=== PATIENT | female | born 1950 | race Caucasian/White ===

== ENCOUNTER → 2016-11-09 | Outpatient (CLI) | payer OTHER | LOC: FIMAGING 13:40 | PROVIDERS: ATTEND Internal Medicine | DX: Z12.31 Encounter for screening mammogram for malignant neoplasm of breast (principal); Z80.3 Family history of malignant neoplasm of breast | CPT/HCPCS: G0202 ==

== ENCOUNTER 2017-07-12 20:55 | Observation (INO) | payer OTHER ==
[2017-07-12 21:00] VITALS: TEMP 97.5
[2017-07-12] MEDS ORDERED: PANTOPRAZOLE SODIUM 40 MG VIAL IVP ONE (21:36)
--- NOTE | 2017-07-12 21:39 | EDPHY ---
H & P Stated Complaint: "bleeding in upper stomach" Time Seen by Provider: 07/12/17 21:23 HPI/ROS: CHIEF COMPLAINT: "I think I have a bleeding ulcer" HISTORY OF PRESENT ILLNESS: 67-year-old female prior history GI bleed 25 years ago, complaining of black stool since yesterday evening associated lightheadedness, fatigue. No abdominal pain. History of chronic Aleve use secondary to osteoarthritis. No chest pain. REVIEW OF SYSTEMS: A ten point review of systems was performed and is negative with the exception of the items mentioned in the HPI PAST MEDICAL & SURGICAL HISTORY: Osteoarthritis. GI bleed. SOCIAL HISTORY:Nonsmoker. PHYSICAL EXAM (Prior to examination, patient consented to physical exam, hands were washed and my usual and customary physical exam procedures followed) 1) GENERAL: Well-developed, well-nourished, alert and oriented. Appears to be in no acute distress. 2) HEAD: Normocephalic, atraumatic 3) HEENT: Pupils equal, round, reactive to light bilaterally. Sclera anicteric. [Nasopharynx, oropharynx, clear, no lesions . dry mucous membranes. 4) NECK: Full range of motion, no meningeal signs. 5) LUNGS: Clear auscultation bilaterally, no wheezes, no rhonchi, no retractions. 6) HEART: Regular rate and rhythm, no murmur, no heave, no gallop. 7) ABDOMEN: No guarding, no rebound, no focal tenderness, negative McBurney's, negative Bray's, negative Rovsing's, negative peritoneal sign, unable to elicit any abdominal pain 8) MUSCULOSKELETAL: Moving all extremities, no focal areas of tenderness, no obvious trauma. No peripheral edema or discoloration. 9) BACK: No CVA tenderness, no midline vertebral tenderness, no fluctuance, no step-off, no obvious trauma, no visual or palpable abnormality. 10) SKIN: No rash, no petechiae. 11) RECTAL: Frankly melanic stool DIFFERENTIAL DIAGNOSIS: In no particular order including but limited to lower GI bleed, upper GI bleed, factitious GI bleed - Personal History Current Tetanus/Diphtheria Vaccine: Yes Current Tetanus Diphtheria and Acellular Pertussis (TDAP): Yes - Medical/Surgical History Hx Asthma: No Hx Chronic Respiratory Disease: No Hx Diabetes: No Hx Cardiac Disease: No Hx Renal Disease: No Hx Cirrhosis: No Hx Alcoholism: No Hx HIV/AIDS: No Hx Splenectomy or Spleen Trauma: No Other PMH: Ulcer OA - Social History Smoking Status: Never smoked Constitutional: Initial Vital Signs Temperature (C) 36.4 C 07/12/17 20:57 Heart Rate 92 07/12/17 20:57 Respiratory Rate 16 07/12/17 20:57 Blood Pressure 136/93 H 07/12/17 20:57 O2 Sat (%) 97 07/12/17 20:57 O2 Delivery Mode Room Air Allergies/Adverse Reactions: JUNIPER BUSHES Allergy (Intermediate, Uncoded 04/14/09 15:11) HIVES ONLY WHEN TOUCHED POLLEN Allergy (Mild, Uncoded 04/14/09 15:10) STUFFY NOSE/SNEEZING Home Medications: Medication Instructions Recorded Calcium Carbonate [Oyster Shell 1,500 mg PO DAILY 12/16/14 Calcium] Cholecalciferol Vit D3 [Vitamin D] 1,000 units PO DAILY 12/16/14 Estradiol [Estrace Vaginal] 1 gm VAG TUFR 12/16/14 Herbals/Supplements -Info Only 1 ea PO DAILY 12/16/14 Magnesium Oxide [Magnesium Oxide 250 mg PO DAILY 12/16/14 500 mg] Multivitamins [Tab-A-Sohail] 1 each PO DAILY 12/16/14 Naproxen Sodium [Aleve] 220 mg PO BID 12/16/14 Zolpidem Tartrate [Ambien] 3.5 mg PO HS PRN 12/16/14 traMADol [Ultram] 50 - 100 mg PO BID PRN 12/16/14 Medical Decision Making ED Course/Re-evaluation: 9:39 p.m.: Care of patient under supervision of secondary supervising physician Dr Silverio. Patient has frankly melanic stool. Will plan on a admission to hospital. She is hemodynamically stable, normal H&H. No indication for transfusion. Has been given PPI. 10:43 p.m.: Consultation with Dr. Jose Antonio ESCAMILLA who recommends patient remain NPO and he will see the patient tomorrow. 10:45 p.m.: Consultation with hospitalist Dr. Biswas who will admit patient - Data Points Laboratory Results: Laboratory Results 07/12/17 22:00 07/12/17 22:00 07/12/17 07/12/17 07/12/17 22:00 22:00 22:00 WBC RBC Hgb Hct MCV MCH MCHC RDW Plt Count MPV Neut % (Auto) Lymph % (Auto) [place] % (Auto) Eos % (Auto) Baso % (Auto) Nucleat RBC Rel Count Absolute Neuts (auto) Absolute Lymphs (auto) Absolute Monos (auto) Absolute Eos (auto) Absolute Basos (auto) Absolute Nucleated RBC Immature Gran % Immature Gran # PT 13.5 SEC SEC (12.0-15.0) INR 1.01 (0.83-1.16) APTT 26.5 SEC SEC (23.0-38.0) Sodium 139 mEq/L mEq/L (135-145) Potassium 3.9 mEq/L mEq/L (3.5-5.2) Chloride 107 mEq/L mEq/L (97-110) Carbon Dioxide 22 mEq/l mEq/l (22-31) Anion Gap 10 mEq/L mEq/L (8-16) BUN 54 mg/dL H mg/dL (7-23) Creatinine 1.0 mg/dL mg/dL (0.6-1.0) Estimated GFR 55 Glucose 100 mg/dL mg/dL (70-100) Calcium 9.1 mg/dL mg/dL (8.5-10.4) Total Bilirubin 0.4 mg/dL mg/dL (0.1-1.4) Conjugated Bilirubin 0.4 mg/dL mg/dL (0.0-0.5) Unconjugated Bilirubin 0.0 mg/dL mg/dL (0.0-1.1) AST 20 IU/L IU/L (14-46) ALT 26 IU/L IU/L (9-52) Alkaline Phosphatase 68 IU/L IU/L (38-126) Total Protein 5.7 g/dL L g/dL (6.3-8.2) Albumin 3.5 g/dL g/dL (3.5-5.0) Lipase 156 IU/L IU/L (23-300) Stool Occult Bld Scrn Patient ABO/Rh O NEGATIVE Antibody Screen NEGATIVE 07/12/17 07/12/17 22:00 21:30 WBC 6.41 10^3/uL 10^3/uL (3.80-9.50) RBC 3.97 10^6/uL L 10^6/uL (4.18-5.33) Hgb 13.2 g/dL g/dL (12.6-16.3) Hct 37.4 % L % (38.0-47.0) MCV 94.2 fL fL (81.5-99.8) MCH 33.2 pg pg (27.9-34.1) MCHC 35.3 g/dL g/dL (32.4-36.7) RDW 12.9 % % (11.5-15.2) Plt Count 219 10^3/uL 10^3/uL (150-400) MPV 10.5 fL fL (8.7-11.7) Neut % (Auto) 52.8 % % (39.3-74.2) Lymph % (Auto) 35.4 % % (15.0-45.0) [place] % (Auto) 8.1 % % (4.5-13.0) Eos % (Auto) 3.0 % % (0.6-7.6) Baso % (Auto) 0.5 % % (0.3-1.7) Nucleat RBC Rel Count 0.0 % % (0.0-0.2) Absolute Neuts (auto) 3.39 10^3/uL 10^3/uL (1.70-6.50) Absolute Lymphs (auto) 2.27 10^3/uL 10^3/uL (1.00-3.00) Absolute Monos (auto) 0.52 10^3/uL 10^3/uL (0.30-0.80) Absolute Eos (auto) 0.19 10^3/uL 10^3/uL (0.03-0.40) Absolute Basos (auto) 0.03 10^3/uL 10^3/uL (0.02-0.10) Absolute Nucleated RBC 0.00 10^3/uL 10^3/uL (0-0.01) Immature Gran % 0.2 % % (0.0-1.1) Immature Gran # 0.01 10^3/uL 10^3/uL (0.00-0.10) PT INR APTT Sodium Potassium Chloride Carbon Dioxide Anion Gap BUN Creatinine Estimated GFR Glucose Calcium Total Bilirubin Conjugated Bilirubin Unconjugated Bilirubin AST ALT Alkaline Phosphatase Total Protein Albumin Lipase Stool Occult Bld Scrn POSITIVE H (NEGATIVE) Patient ABO/Rh Antibody Screen Medications Given: Discontinued Medications Pantoprazole Sodium (Protonix) 40 mg IVP EDNOW ONE Stop: 07/12/17 21:37 Last Admin: 07/12/17 21:56 Dose: 40 mg Departure - Departure Disposition: [facility] Inpatient Acute Clinical Impression: GI bleed due to NSAIDs Condition: Fair
[2017-07-12 22:09] LABS: PLATELET COUNT 219 10^3/uL (150-400)
[2017-07-12 22:28] LABS: INR 1.01 (0.83-1.16); PROTIME(PATIENT) 13.5 SEC (12.0-15.0)
[2017-07-12] MEDS ORDERED: ONDANSETRON DISINTEGRATING 4 MG TAB PO PRN (22:47)
[2017-07-12] MEDS ORDERED: ACETAMINOPHEN 325 MG TAB PO PRN (22:47)
[2017-07-12] MEDS ORDERED: ONDANSETRON 4 MG/2 ML VIAL IVP PRN (22:47)
[2017-07-12] MEDS ORDERED: NS 1,000 ML IV SCH (23:00)
--- NOTE | 2017-07-13 01:50 | PDGENHP ---
History and Physical - Chief Complaint Melena - History of Present Illness 67 yo F w/ hx of OA and GIB 25 years ago presents with melena. Patient first noticed dizziness on the evening prior to admission. Shortly after this she noticed an episode of melena. She again noticed melena on the evening of admission so she presented to the ED. While here she has been hemodynamically stable with normal H/H. She takes NSAIDs twice daily for joint pain. She has OA and has had 7 joint surgeries in the past. She describes a similar episode 25 years ago, which she was told likely resulted from an ulcer. History Information - Allergies/Home Medication List Allergies/Adverse Reactions: JUNIPER BUSHES Allergy (Intermediate, Uncoded 04/14/09 15:11) HIVES ONLY WHEN TOUCHED POLLEN Allergy (Mild, Uncoded 04/14/09 15:10) STUFFY NOSE/SNEEZING Home Medications: Calcium Carbonate [Oyster Shell Calcium] 1,500 mg PO DAILY 12/16/14 [Last Taken 12/15/14] Cholecalciferol Vit D3 [Vitamin D] 1,000 units PO DAILY 12/16/14 [Last Taken ] Estradiol [Estrace Vaginal] 1 gm VAG TUFR 12/16/14 [Last Taken 12/14/14] Herbals/Supplements -Info Only 1 ea PO DAILY 12/16/14 [Last Taken 12/15/14] Magnesium Oxide [Magnesium Oxide 500 mg] 250 mg PO DAILY 12/16/14 [Last Taken ] Multivitamins [Tab-A-Sohail] 1 each PO DAILY 12/16/14 [Last Taken 12/15/14] Naproxen Sodium [Aleve] 220 mg PO BID 12/16/14 [Last Taken 12/15/14] Zolpidem Tartrate [Ambien] 3.5 mg PO HS PRN 12/16/14 [Last Taken 12/13/14] traMADol [Ultram] 50 - 100 mg PO BID PRN 12/16/14 [Last Taken 12/15/14] I have personally reviewed and updated: family history, medical history - Past Medical History arthritis, GI bleed (25 years ago, likely PUD) - Surgical History Additional surgical history: 7 joint surgeries - Family History Additional family history: Stomach cancer in [place] - Social History Smoking Status: Never smoked Review of Systems Review of Systems: ROS: 10pt was reviewed & negative except for what was stated in HPI & below Physical Exam Physical Exam: Temp Pulse Resp BP Pulse Ox 36.4 C 73 20 131/71 H 97 07/12/17 20:57 07/12/17 23:30 07/12/17 23:30 07/12/17 23:30 07/12/17 23:30 Constitutional: no apparent distress, not in pain Eyes: PERRL, EOMI Ears, Nose, Mouth, Throat: moist mucous membranes, no oral mucosal ulcers Cardiovascular: regular rate and rhythym, no murmur, rub, or gallop Respiratory: no respiratory distress, no rales or rhonchi Gastrointestinal: normoactive bowel sounds, soft, non-tender abdomen Skin: warm, normal color Musculoskeletal: full muscle strength, no muscle tenderness Neurologic: AAOx3, CN II-XII Intact Psychiatric: interacting appropriately, not anxious Lab Data & Imaging Review 07/12/17 22:00 07/12/17 22:00 WBC 6.41 10^3/uL (3.80-9.50) 07/12/17 22:00 RBC 3.97 10^6/uL (4.18-5.33) L 07/12/17 22:00 Hgb 13.2 g/dL (12.6-16.3) 07/12/17 22:00 Hct 37.4 % (38.0-47.0) L 07/12/17 22:00 MCV 94.2 fL (81.5-99.8) 07/12/17 22:00 MCH 33.2 pg (27.9-34.1) 07/12/17 22:00 MCHC 35.3 g/dL (32.4-36.7) 07/12/17 22:00 RDW 12.9 % (11.5-15.2) 07/12/17 22:00 Plt Count 219 10^3/uL (150-400) 07/12/17 22:00 MPV 10.5 fL (8.7-11.7) 07/12/17 22:00 Neut % (Auto) 52.8 % (39.3-74.2) 07/12/17 22:00 Lymph % (Auto) 35.4 % (15.0-45.0) 07/12/17 22:00 [place] % (Auto) 8.1 % (4.5-13.0) 07/12/17 22:00 Eos % (Auto) 3.0 % (0.6-7.6) 07/12/17 22:00 Baso % (Auto) 0.5 % (0.3-1.7) 07/12/17 22:00 Nucleat RBC Rel Count 0.0 % (0.0-0.2) 07/12/17 22:00 Absolute Neuts (auto) 3.39 10^3/uL (1.70-6.50) 07/12/17 22:00 Absolute Lymphs (auto) 2.27 10^3/uL (1.00-3.00) 07/12/17 22:00 Absolute Monos (auto) 0.52 10^3/uL (0.30-0.80) 07/12/17 22:00 Absolute Eos (auto) 0.19 10^3/uL (0.03-0.40) 07/12/17 22:00 Absolute Basos (auto) 0.03 10^3/uL (0.02-0.10) 07/12/17 22:00 Absolute Nucleated RBC 0.00 10^3/uL (0-0.01) 07/12/17 22:00 Immature Gran % 0.2 % (0.0-1.1) 07/12/17 22:00 Immature Gran # 0.01 10^3/uL (0.00-0.10) 07/12/17 22:00 PT 13.5 SEC (12.0-15.0) 07/12/17 22:00 INR 1.01 (0.83-1.16) 07/12/17 22:00 APTT 26.5 SEC (23.0-38.0) 07/12/17 22:00 Sodium 139 mEq/L (135-145) 07/12/17 22:00 Potassium 3.9 mEq/L (3.5-5.2) 07/12/17 22:00 Chloride 107 mEq/L (97-110) 07/12/17 22:00 Carbon Dioxide 22 mEq/l (22-31) 07/12/17 22:00 Anion Gap 10 mEq/L (8-16) 07/12/17 22:00 BUN 54 mg/dL (7-23) H 07/12/17 22:00 Creatinine 1.0 mg/dL (0.6-1.0) 07/12/17 22:00 Estimated GFR 55 07/12/17 22:00 Glucose 100 mg/dL (70-100) 07/12/17 22:00 Calcium 9.1 mg/dL (8.5-10.4) 07/12/17 22:00 Total Bilirubin 0.4 mg/dL (0.1-1.4) 07/12/17 22:00 Conjugated Bilirubin 0.4 mg/dL (0.0-0.5) 07/12/17 22:00 Unconjugated Bilirubin 0.0 mg/dL (0.0-1.1) 07/12/17 22:00 AST 20 IU/L (14-46) 07/12/17 22:00 ALT 26 IU/L (9-52) 07/12/17 22:00 Alkaline Phosphatase 68 IU/L (38-126) 07/12/17 22:00 Total Protein 5.7 g/dL (6.3-8.2) L 07/12/17 22:00 Albumin 3.5 g/dL (3.5-5.0) 07/12/17 22:00 Lipase 156 IU/L (23-300) 07/12/17 22:00 Stool Occult Bld Scrn POSITIVE (NEGATIVE) H 07/12/17 21:30 Patient ABO/Rh O NEGATIVE 07/12/17 22:00 Antibody Screen NEGATIVE 07/12/17 22:00 Assessment & Plan Assessment: 67 yo F w/ OA presents w/ UGIB. Plan: 1. UGIB - Presents with 2 days of melena. Hemodynamically stable with normal H/ H. Etiology is most likely PUD vs. gastritis noting daily NSAID use. She reports history of similar episode 25 years ago. An ulcer was suspected at that time but could not be found on endoscopy. - Admit for observation - Monitor CBC - Maintain NPO, PPI IV BID - GI consulted, likely EGD tomorrow 2. OA - Reports 7 prior joint surgeries. She uses Tramadol and NSAIDs daily for pain control. - Recommend NSAID cessation Diet - NPO pending EGD Code - Full Ppx- SCDs Dispo - Admit under observation status
[2017-07-13 06:18] LABS: PLATELET COUNT 171 10^3/uL (150-400)
[2017-07-13] MEDS ORDERED: PANTOPRAZOLE SODIUM 40 MG VIAL IVP SCH (09:00)
[2017-07-13] MEDS ORDERED: MIDAZOLAM 2 MG/2 ML VIAL ONE (11:23)
[2017-07-13] MEDS ORDERED: fentaNYL 100 MCG/2 ML INJ ONE (11:24)
[2017-07-13] MEDS ORDERED: fentaNYL 100 MCG/2 ML INJ IVP ONE (11:45)
[2017-07-13] MEDS ORDERED: MIDAZOLAM 2 MG/2 ML VIAL IVP ONE (11:45)
[2017-07-13 11:57] VITALS: PULSE 70
--- NOTE | 2017-07-13 11:57 | GIREPORT ---
[facility] [place] Surgical Services - Endoscopy Department Patient Name: Whitney Corea Procedure Date: 07/13/2017 11:15 AM Patient Type: Inpatient Attending MD/ ER Physician: Jose Alejandro Brady MD Procedure: Upper GI endoscopy Indications: Melena Providers: Jose Alejandro Brady MD Medicines: Fentanyl 100 micrograms IV, Midazolam 4 mg IV Complications: No immediate complications. Description of Procedure: After obtaining informed consent, the endoscope was passed under direct vision. Throughout the procedure, the patient's blood pressure, pulse, and oxygen saturations were monitored continuously. The Endoscope was intro duced through the mouth, and advanced to the fourth part of duodenum. The [facility] er GI endoscopy was accomplished without difficulty. The patient tolerated th e procedure well. Findings: The examined esophagus was normal. Diffuse mild inflammation characterized by congestion (edema), erosions and erythema was found in the gastric antrum. Biopsies were taken with a co ld forceps for histology. One non-bleeding superficial duodenal ulcer with no stigmata of bleedin g was found in the second portion of the duodenum. The lesion was 7 mm in lar gest dimension. The exam was otherwise without abnormality. Estimated Blood Loss: Estimated blood loss: none. Post Op Diagnosis: - Normal esophagus. - Gastritis. Biopsied. - One non-bleeding duodenal ulcer with no stigmata of bleeding. - The examination was otherwise normal. Recommendation: - No aspirin, ibuprofen, naproxen, or other non-steroidal anti-inflamma tory drugs. - Use a proton pump inhibitor PO BID for 12 weeks. Recommend lifelong Q D therapy thereafter (given prior history of bleeding ulcer). This is particularly important, if patient is going to require ongoing manageme nt with NSAIDs. - Advance diet as tolerated. - Observe patient's clinical course. - Consider DC home today, pending recovery from procedure and clinical course. - Await pathology results. If biopsy negative for h.pylori, will confir m with stool, blood, or breath test. Attending Participation: I personally performed the entire procedure. Jose Alejandro Brady MD Jose Alejandro Brady MD 07/13/2017 11:56:49 AM This report has been signed electronicallyJose Alejandro Brady MD Number of Addenda: 0 Note Initiated On: 07/13/2017 11:15 AM [email or web address]
--- NOTE | 2017-07-13 12:14 | GCON ---
[f rep st] CONSULTATION INPATIENT CONSULTATION REQUESTING PHYSICIAN: Marcelo Biswas MD REASON FOR CONSULTATION: Melena. CHIEF COMPLAINT: Dizziness and melena. HISTORY OF PRESENT ILLNESS: The patient is a pleasant 67-year-old female with a history of osteoarth ritis who presented to the emergency room with dizziness and dark stools. Her symptoms began on Th sday, progressed through yesterday, and she presented to the emergency room yesterday where she was a dmitted for overnight observation. She takes nonsteroidal anti-inflammatory therapies twice daily fo r joint discomforts. She reports a prior history of at least 1 episode of gastrointestinal bleeding, perhaps 2. She believes both were described as being from ulcer, although she is somewhat unclear o n the nature of those workups. She reports no fevers, chills or sweats. She has had no nausea. She denies hematemesis. She reports no bright red blood per rectum. ALLERGIES: Juniper bushes and pollen. HOME MEDICATIONS: Calcium carbonate, vitamin D, estradiol, herbal supplements, magnesium oxide, mult ivitamins, Aleve b.i.d., Ambien, and tramadol. PAST MEDICAL HISTORY: Includes arthritis and GI bleed. PAST SURGICAL HISTORY: Includes multiple joint surgeries. FAMILY HISTORY: She reports a grandmother with stomach cancer. SOCIAL HISTORY: She does not smoke. REVIEW OF SYSTEMS: A complete 10-point review was undertaken with the patient. The pertinent positi ves and negatives are detailed in the history of present illness. PHYSICAL EXAM: GENERAL: This is a well-developed female in no apparent distress. HEENT: Her pupils are equal, round, reactive to light and accommodation. Oropharynx is clear. She has no oral ulcers . CARDIOVASCULAR: Reveals regular rate and rhythm. RESPIRATORY: Reveals no respiratory distress, clear to auscultation, no rales or rhonchi. GI: Reveals normoactive bowel sounds. Soft, nontender without rebound or guarding. SKIN: Warm and dry. MUSCULOSKELETAL: Reveals normal muscle strength wi thout tenderness. NEURO: With no focal lesions, PSYCHIATRIC: She is appropriate and interacting nor gabe without anxiety. LABORATORY TESTING: White count of 6.41, hemoglobin of 13.2, hematocrit of 37.4, platelet count of 2 19. Sodium of 139, potassium of 3.9, chloride of 107, bicarb of 22, BUN of 54, creatinine of 1.0. L ipase of 156. Liver function tests were normal. IMPRESSION AND RECOMMENDATIONS: The patient is a pleasant 67-year-old female admitted with melena, d izziness, and malaise. She has a prior history of probable peptic ulcer disease. She is currently t aking nonsteroidal therapies regularly. She has an elevated BUN over creatinine ratio. I am suspici ous for upper gastrointestinal bleeding, likely related to non-steroidal anti-inflammatory drugs vilma ivy ulceration. The differential diagnosis could also include small bowel sources of bleeding, colon ic sources of bleeding, or other upper sources of bleeding. At this time, I recommend she remain not wali per oral, on an intravenous proton pump inhibitor, and we will proceed with upper endoscopy. /[id number]/MODL
[2017-07-13 12:28] VITALS: BP 118/74; RESP 22; O2SAT 98
[2017-07-13] MEDS ORDERED: traMADol 50 MG TAB PO PRN (15:00)
--- NOTE | 2017-07-13 15:22 | PDDCSUM ---
Discharge Summary Discharge Summary: DISCHARGE DIAGNOSES: -acute upper GI bleeding -NSAID induced gastropathy -duodenal ulcer, 7 mm diameter -diffuse antral gastritis with erosions -severe and debilitating chronic osteoarthritis of multiple joints CONSULTANTS: Dr. Jose Antonio Sam of gastroenterology PROCEDURES: Esophagogastroduodenoscopy with biopsy HOSPITAL COURSE SUMMARY: This patient with 1 prior episode of GI bleeding of undetermined source, and 1 prior episode of EGD documented peptic ulcer, takes twice daily Aleve for severe arthritis pains. She comes in at this time with melenic stools. There is no abdominal pain, fever, back pain, or vomiting. This had been going on for a couple of days at home. She was treated with proton pump inhibitor here and underwent EGD. On EGD she is found have normal esophagus, diffuse antral gastritis with erosions, and a 7 mm bland appearing duodenal ulcer. There was no active bleeding and there were no visible vessels in the ulcer. There are no masses. The patient has had uneventful recovery after her EGD. As she has no high risk lesions and no active bleeding on her endoscopy she is felt to be safe for discharge to home. It was discussed with the patient and her in detail that she is at high risk for recurrent ulcerations and bleeding episodes in the future and should avoid nonsteroidal anti-inflammatory medicines if at all possible. However it is recognized that she has severe chronic arthritis of multiple small and large joints is both quite painful and quite debilitating particularly in terms of use of her hands. She is taking tramadol in addition to nonsteroidals at home as she comes to us. It is recommended that she hike up with a sustain engineer to ensure both that there is not a different arthropathy in addition to osteoarthritis and also that we are doing everything to control her pain and maintain joint function in addition to medications that she is currently using. Is recommended that she have 12 weeks of twice daily proton pump inhibitor therapy followed by lifelong daily proton pump inhibitor therapy. PENDING TEST RESULTS: Biopsy results from EGD MEDICATION CHANGES: Addition of Protonix of 40 mg twice daily for 12 weeks minimum FOLLOW-UP PLAN: Follow-up at [facility] in the 8-10 weeks Follow-up with Dr. Powell her primary care physician in the near future to review treatment of her joint disease as well as consideration for referral to sustain engineer Greater than 35 minutes bedside and care coordination time today
[2017-07-14] MEDS ORDERED: Herbals/Supplements -Info Only PO SCH (09:00)
[2017-07-14] MEDS ORDERED: MULTIVITAMINS 1 EACH TAB PO SCH (09:00)
[2017-07-14] MEDS ORDERED: CALCIUM CARBONATE 500 MG TAB PO SCH (09:00)
[2017-07-14] MEDS ORDERED: MAGNESIUM OXIDE 250 MG PO SCH (09:00)
[2017-07-14] MEDS ORDERED: CHOLECALCIFEROL VIT D3 1,000 UNITS TAB PO SCH (09:00)
== END 2017-07-13 15:30 | disposition home or self-care (01) ==
PROVIDERS: ADMIT Student in an Organized Health Care Education/Training Program; ATTEND Internal Medicine
PROC: 0DB68ZX Excision of Stomach, Via Natural or Artificial Opening Endoscopic, Diagnostic (ICD-10-PCS; principal; 2017-07-12)
DX: K26.9 Duodenal ulcer, unspecified as acute or chronic, without hemorrhage or perforation (principal); T39.395A Adverse effect of other nonsteroidal anti-inflammatory drugs [NSAID], initial encounter; M15.9 Polyosteoarthritis, unspecified
CPT/HCPCS: 43239; G0378; J0171; J2250; J3010; 96374

== ENCOUNTER 2017-08-13 10:52 | Emergency (ER) | payer OTHER ==
[2017-08-13] MEDS ORDERED: DIAZEPAM 5 MG/ML 1 ML SYR IVP ONE (11:52)
[2017-08-13] MEDS ORDERED: NS 1,000 ML IV ONE (11:52)
[2017-08-13] MEDS ORDERED: ONDANSETRON 4 MG/2 ML VIAL IVP ONE (12:48)
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
[2017-08-13 13:01] LABS: CREATINE KINASE 46 IU/L (0-156)
[2017-08-13 14:00] VITALS: BP 153/96
== END 2017-08-13 14:10 | disposition home or self-care (01) ==
DX: S16.1XXA Strain of muscle, fascia and tendon at neck level, initial encounter (principal); S39.012A Strain of muscle, fascia and tendon of lower back, initial encounter; M47.812 Spondylosis without myelopathy or radiculopathy, cervical region; M51.36 Other intervertebral disc degeneration, lumbar region; E86.9 Volume depletion, unspecified; V47.6XXA Car passenger injured in collision with fixed or stationary object in traffic accident, initial encounter; Y92.410 Unspecified street and highway as the place of occurrence of the external cause; Y99.8 Other external cause status; Y93.89 Activity, other specified
CPT/HCPCS: 96374; J2270; J2405; J3360

== ENCOUNTER → 2017-11-11 | Outpatient (CLI) | payer OTHER | LOC: FIMAGING 13:36 | PROVIDERS: ATTEND Internal Medicine | DX: Z12.31 Encounter for screening mammogram for malignant neoplasm of breast (principal); Z80.3 Family history of malignant neoplasm of breast ==